=== PATIENT | male | born 1950 | race African-American/Black ===

== ENCOUNTER 2016-08-03 15:38 | Emergency (ER) | payer OTHER ==
[~2016-08-03] VITALS: Ht 190.5 cm; Wt 104.3 kg
--- NOTE | 2016-08-03 16:02 | Emergency Room Report ---
History of Present Illness General Chief Complaint: Pain Source: Patient, EMS Present Illness HPI The patient is a 65 yo M with a R inguinal hernia presenting for R inguinal pain. The patient states that he has been in pain for years and wants to expedite surgery. The patient describes the pain as an 8/10 dull ache to the area and does not radiate. Pain is relieved when the patient pushes back in the hernia. The patient denies any recent changes in pain intensity. The patient states he has an appointment with surgeon in two weeks for evaluation and possible scheduling for surgery. 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 Review of Systems All Other Systems: negative except mentioned in HPI Physical Exam Vital Signs Date Time Temp Pulse Resp B/P Pulse Ox O2 Delivery O2 Flow Rate FiO2 08/03/16 15:30 98.8 80 16 123/84 97 Room Air Sp02 EP Interpretation: reviewed, normal General Appearance: no apparent distress, alert, GCS 15, non-toxic Head: normocephalic, atraumatic Gastrointestinal: normal bowel sounds, soft, no guarding, hernia - R inguinal: reducible with slight contonuous pressure Rectal: deferred Genitourinary: normal inspection, no CVA tenderness Musculoskeletal: back normal, gait/station normal, normal range of motion, non- tender Neurologic: alert, oriented x3, responsive, motor strength/tone normal, sensory intact, speech normal Psychiatric: judgement/insight normal, memory normal, mood/affect normal, no suicidal/homicidal ideation Skin: normal color, no rash, warm/dry, well hydrated Lymphatic: no adenopathy Medical Decision Making PA Attestation Dr. Fragoso is my supervising physician. Patient management was discussed with my supervising physician Diagnostic Impression: Primary Impression: Inguinal hernia ER Course The patient is a 65 yo M with a R inguinal hernia presenting for R inguinal pain. DDx: inguinal hernia, incarcerated hernia, orchitis, appendicitis PE: vitals WNL. NAD Abd is soft and non tender. Normal BS. There is a 5cm in diameter soft R sided inguinal hernia. Easily reducible with slight continuous pressure. The patient immediately feels better after it being reduced. The patient will be DC'ed home with a limited prescription for norco and will FU with PMD as soon as possible. The patient will also attempt to see surgeon sooner than the already scheduled appointment. two weeks. Last Vital Signs Date Time Temp Pulse Resp B/P Pulse Ox O2 Delivery O2 Flow Rate FiO2 08/03/16 15:30 98.8 80 16 123/84 97 Room Air Status: improved Disposition: HOME, SELF-CARE Condition: Improved Scripts Hydrocodone Bit/Acetaminophen 5-325* (NORCO 5-325 TABLET*) 1 Each Tablet 1 TAB ORAL Q6HR Y for For Pain, #15 TAB Prov: ARJUN LOMAS 08/03/16 ARJUN LOMAS Aug 03, 2016 16:02
[2016-08-03] MEDS ORDERED: NORCO 5-325 TA1 EAC1 ORAL (16:14)
[2016-08-03] MEDS ORDERED: Norco 7.5mg/325mg tab ORAL ONE (16:15)
[2016-08-03 16:41] VITALS: BP 123/84
[2016-08-03 17:29] VITALS: BP 123/84
== END 2016-08-03 17:00 | disposition home or self-care (01) ==
LOC: EDBD 15:38 → EMR 16:08
DX: K40.90 Unilateral inguinal hernia, without obstruction or gangrene, not specified as recurrent (principal); K42.9 Umbilical hernia without obstruction or gangrene; I10 Essential (primary) hypertension; I63.9 Cerebral infarction, unspecified
CPT/HCPCS: 99283